=== PATIENT | male | born 1990 | race Caucasian/White ===

== ENCOUNTER 2019-04-03 23:51 | Emergency (ER) | payer SELFPAY ==
[~2019-04-03] VITALS: Ht 175.3 cm; Wt 99.8 kg
[2019-04-04 00:04] VITALS: BP 130/85
--- NOTE | 2019-04-04 00:25 | NUR ---
28 Y/O MALE PRESENTS TO ED, C/O FEVER. PT STATES FEVER HAS BEEN ONGOING FOR PAST WEEK; PT UNABLE TO VERIFY TEMPERATURE PRIOR TO ARRIVAL AT ED. PT DENIES ANY N/V/D. C/O CHEST SORENESS THAT RADIATES TO LEFT SHOULDER, 02/07; TOOK MOTRIN YESTERDAY WITH SOME RELIEF. PT AT STABLE CONDITION. ERMD MADE AWARE. WILL CONTINUE TO MONITOR.
--- NOTE | 2019-04-04 00:40 | NUR ---
DR. MEJIA EVALUATING PT AT BEDSIDE
[2019-04-04] MEDS ORDERED: KETOROLAC 30 MG/ML VIAL IM ONE (01:00)
[2019-04-04] MEDS ORDERED: ALBUTEROL SULFATE/IPRATROPIU 3 ML SOL IH ONE (01:00)
--- NOTE | 2019-04-04 01:09 | NUR ---
PT TAKEN TO XRAY
--- NOTE | 2019-04-04 01:15 | NUR ---
PT RETURN FROM RADIOLOGY
--- NOTE | 2019-04-04 01:18 | NUR ---
Respiratory Therapist at bedside for respiratory intervention.
[2019-04-04 02:35] VITALS: BP 130/85
--- NOTE | 2019-04-04 02:38 | NUR ---
Patient discharged with v/s stable. Written and verbal after care instructions given and explained. Patient alert, oriented and verbalized understanding of instructions. Ambulatory with steady gait. All questions addressed prior to discharge. ID band removed. Patient advised to follow up with PMD. Rx of IBUPROFEN given. Patient educated on indication of medication including possible reaction and side effects. Opportunity to ask questions provided and answered. PT PAIN LEVEL IS 0/10 PRIOR TO D/C
== END 2019-04-04 02:38 | disposition home or self-care (01) ==
LOC: MED 23:51
DX: J11.1 Influenza due to unidentified influenza virus with other respiratory manifestations (principal); F17.210 Nicotine dependence, cigarettes, uncomplicated
CPT/HCPCS: 71046; 96372; 99283; J1885; J7620

== ENCOUNTER 2019-10-23 14:25 | Emergency (ER) | payer SELFPAY ==
[~2019-10-23] VITALS: Ht 175.3 cm; Wt 69.9 kg
[2019-10-23 14:29] VITALS: BP 148/90
--- NOTE | 2019-10-23 14:32 | NUR ---
PATIENT AMBULATED TO BED 5.
--- NOTE | 2019-10-23 14:35 | NUR ---
29/M C/O SWELLING TO [facility], UNABLE TO RETRACT [place], AND DISCHARGE FROM [facility] X 2 DAYS. PT HAS CONCERN FOR STI. DENIES PMH. NAD.
--- NOTE | 2019-10-23 14:36 | NUR ---
JAMES CHEN EVALUATING PT AT BEDSIDE
[2019-10-23] MEDS ORDERED: cefTRIAXone 250 MG in LIDOCAINE MPF 1% 0.9 ML IM ONE (14:45)
--- NOTE | 2019-10-23 14:45 | NUR ---
URINE SAMPLE OBTAINED
[2019-10-23] MEDS ORDERED: LIDOCAINE MPF 1% 5 ML ONE (14:46)
[2019-10-23] MEDS ORDERED: cefTRIAXone 250 MG VIAL ONE (14:46)
[2019-10-23 15:12] VITALS: BP 148/90
--- NOTE | 2019-10-23 15:12 | NUR ---
Patient discharged with v/s stable. Written and verbal after care instructions given and explained. Patient alert, oriented and verbalized understanding of instructions. Ambulatory with steady gait. All questions addressed prior to discharge. ID band removed. Patient advised to follow up with PMD. Rx of BACITRACIN AND ZITHROMAX given. Patient educated on indication of medication including possible reaction and side effects. Opportunity to ask questions provided and answered.
== END 2019-10-23 15:12 | disposition home or self-care (01) ==
LOC: MED 14:25
DX: N47.1 Phimosis (principal); F17.210 Nicotine dependence, cigarettes, uncomplicated; R03.0 Elevated blood-pressure reading, without diagnosis of hypertension; Z20.2 Contact with and (suspected) exposure to infections with a predominantly sexual mode of transmission; Z71.6 Tobacco abuse counseling
CPT/HCPCS: 36415; 81002; 87086; 96372; 99283; J0696; J2001